=== PATIENT | male | born 1965 | race Caucasian/White ===

== ENCOUNTER 2024-09-15 22:06 | Emergency (ER) | payer OTHER ==
--- NOTE | 2024-09-15 22:10 | ERPHSYRPT ---
- History of Present Illness Time Seen by Provider: 09/15/24 22:10 Source: patient, family Exam Limitations: no limitations Physician History: This is an overweight 58-year-old white male patient of Dr. Guerrero who arrives by private vehicle with complaints of fever, mild dizziness, mild headache and body aches and pains as well as fatigue. He denies chest pain. He denies cough. He denies shortness of breath. He has no abdominal pain. He denies nausea vomiting and diarrhea. He has no neck pain. He has no visual changes. He denies photophobia. He denies earache and he denies sore throat. Patient states he did have a fever yesterday as high as 102 F. Patient arrives to the emergency department afebrile. He states that his fever must of broke from the time he was home to the time he arrived in our emergency department because he is feeling much better. Patient has a history of hypertension, prostate issues, hyperlipidemia and gastroesophageal reflux disease. Patient does state that he thinks he is not taking enough oral intake and would like an intravenous line placed and crystalloid fluid infused Timing/Duration: yesterday Fever Severity: gone Fever Therapy BAKER PAINT: Ibuprofen, Acetaminophen Associated Symptoms: headache, muscle aches, weakness (Mild weakness and fatigue), No abdominal pain, No chest pain, No confusion, No cough, No nausea/ vomiting, No stiff neck Allergies/Adverse Reactions: No Known Drug Allergies Allergy (Verified 09/15/24 22:49) Home Medications: Losartan Potassium 100 mg PO DAILY 01/09/14 [History] Aspirin EC 81 mg [Ecotrin 81 mg] 1 tab PO DAILY 09/15/24 [History] Atorvastatin Calcium 10 mg PO HS 09/15/24 [History] Cholecalciferol (Vitamin D3) [Vitamin D3] 5,000 units PO DAILY 09/15/24 [History] Escitalopram Oxalate 10 mg PO DAILY 09/15/24 [History] Gabapentin 200 mg PO TID 09/15/24 [History] Metoprolol Succinate 100 mg [Toprol Xl 100 MG] 1 tab PO DAILY 09/15/24 [History] Omeprazole 40 mg PO DAILY 09/15/24 [History] Tamsulosin HCl 0.4 mg [Flomax 0.4 MG] 1 tab PO HS 09/15/24 [History] Hx Tetanus, Diphtheria Vaccination/Date Given: Yes (2011) Hx Influenza Vaccination/Date Given: No Hx Pneumococcal Vaccination/Date Given: No Travel Risk - International Travel Have you traveled outside of the country in past 3 weeks: No - Emerging Infectious Disease Are you exhibiting symptoms associated with any current EIDs: Yes Symptoms: Headaches/Body Aches/ - Review of Systems Constitutional: Fatigue, Weakness Eyes: No Symptoms Ears, Nose, & Throat: No Symptoms Respiratory: No Symptoms Cardiac: No Symptoms Abdominal/Gastrointestinal: No Symptoms Genitourinary Symptoms: No Symptoms Musculoskeletal: Arthralgias, Myalgias Skin: No Symptoms Neurological: No Symptoms Psychological: No Symptoms Endocrine: No Symptoms Hematologic/Lymphatic: No Symptoms Immunological/Allergic: No Symptoms All Other Systems: Reviewed and Negative - Past Medical History Pertinent Past Medical History: Yes Cardiac History: Hypertension Other Medical History: NEUROPATHY - Past Surgical History Past Surgical History: Yes Other Surgical History: LOWER BACK. LT KNEE. REMOVAL OF CYST MID BACK - Social History Smoking Status: Current every day smoker Exposure to second hand smoke: Yes Drug Use: none Patient Lives Alone: No - Nursing Vital Signs Nursing Vital Signs: Initial Vital Signs Temperature 98.7 F 09/15/24 22:37 Pulse Rate 78 09/15/24 22:37 Respiratory Rate 22 09/15/24 22:37 Blood Pressure 145/64 09/15/24 22:37 O2 Sat by Pulse Oximetry 96 09/15/24 22:37 Pain Scale Pain Intensity 3 - Physical Exam General Appearance: no apparent distress, alert, anxiety, obese Eye Exam: PERRL/EOMI, eyes nml inspection ENT Exam: normal ENT inspection, no apparent trauma, hearing grossly normal, TMs normal, pharynx normal Neck Exam: normal inspection, non-tender, supple, full range of motion Respiratory Exam: normal breath sounds, lungs clear, no respiratory distress, no accessory muscle use, No chest non-tender, No respiratory distress Cardiovascular/Chest Exam: normal heart sounds, regular rate/rhythm Gastrointestinal/Abdominal Exam: soft, non tender, no distention, no mass, no guarding, no ecchymosis, no organomegaly, no pulsatile mass, normal bowel sounds Rectal Exam: not done Extremity Exam: non-tender, normal range of motion, normal inspection Neurologic Exam: alert, oriented x 3, cooperative, 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, normal mood/affect, nml cerebellar function, nml station & gait, sensation nml Skin Exam: normal color, warm, dry Lymphatic: No adenopathy SpO2 Interpretation: normal O2 Delivery: Room Air - Course Nursing assessment & vital signs reviewed: Yes Ordered Tests: Active Orders 24 hr Category Date Time Status CBC W DIFF Stat Lab 09/15/24 23:44 Completed CMP Stat Lab 09/15/24 23:44 Completed CULTURE,URINE Stat Lab 09/16/24 00:19 Received Lactic Acid Stat Lab 09/15/24 23:44 Completed MONO SCREEN Stat Lab 09/15/24 Completed UA W/RFX UR CULTURE Stat Lab 09/16/24 00:19 Completed Medication Summary Discontinued Medications Generic Name Dose Route Start Last Admin Trade Name Freq PRN Reason Stop Dose Admin Sodium Chloride 1,000 mls @ 999 mls/hr 09/15/24 23:44 09/16/24 00:09 Sodium Chloride 0.9% 1000 Ml IV 09/16/24 00:44 999 mls/hr .Q1H1M STA Administration Sodium Chloride Confirm 09/16/24 00:07 Sodium Chloride 0.9% 1000 Ml Administered 09/16/24 00:08 Dose 1,000 mls @ ud .ROUTE .STK-MED ONE Lab/Rad Data: Laboratory Result Diagrams 09/16/24 00:01 09/16/24 00:01 Laboratory Results 09/16/24 09/16/24 09/16/24 Range/Units 00:19 00:05 00:01 WBC (4.23-9.07) x10^3/uL RBC (4.63-6.08) x10^6/uL Hgb (13.7-17.5) g/dL Hct (40.1-51.0) % MCV (79.0-92.2) fL MCH (25.7-32.2) pg MCHC (32.3-36.5) g/dL RDW (11.6-14.4) % Plt Count (163-337) x10^3/uL MPV (9.4-12.4) fL Gran % (34.0-67.9) % Immature Gran % (Auto) (0.001-0.429) % Nucleat RBC Rel Count (0.00-0.2) % Eos # (Auto) (0.04-0.54) x10^3/uL Immature Gran # (Auto) (0.001-0.031) x10^3u/L Absolute Lymphs (auto) (1.32-3.57) x10^3/uL Absolute Monos (auto) (0.30-0.82) x10^3/uL Absolute Nucleated RBC (0.00-0.012) x10^3u/L Lymphocytes % (21.8-53.1) % Monocytes % (5.3-12.2) % Eosinophils % (0.8-7.0) % Basophils % (0.2-1.2) % Absolute Granulocytes (1.78-5.38) x10^3/uL Basophils # (0.01-0.08) x10^3/uL Sodium (135-145) mmol/L Potassium (3.5-5.1) mmol/L Chloride (98-107) mmol/L Carbon Dioxide (22-30) mmol/L Anion Gap (5-15) MEQ/L BUN (9-20) mg/dL Creatinine (0.66-1.25) mg/dL Estimated GFR ML/MIN Glucose (74-106) mg/dL Lactic Acid 0.7 (0.4-2.0) Calcium (8.4-10.2) mg/dL Total Bilirubin (0.2-1.3) mg/dL AST (17-59) U/L ALT (0-50) U/L Alkaline Phosphatase (38-126) U/L Serum Total Protein (6.3-8.2) g/dL Albumin (3.5-5.0) g/dL Urine Color Yellow (Yellow) Urine Appearance Clear (Clear) Urine pH 6.0 (4.6-8.0) Ur Specific [place]ott 1.015 (1.005-1.030) Urine Protein Negative (Negative) Urine Glucose (UA) Negative (Negative) mg/dL Urine Ketones Negative (Negative) Urine Blood Trace (Negative) Urine Nitrite Negative (Negative) Urine Bilirubin Negative (Negative) Urine Urobilinogen 0.2 (0.2) mg/dL Ur Leukocyte Esterase Trace A (Negative) U Hyaline Cast (Auto) NONE SEEN (0-2) /LPF Urine Microscopic RBC 0-2 (0-5) /HPF Urine Microscopic WBC 11-20 A (0-5) /HPF Ur Epithelial Cells None Seen (None Seen) /HPF Urine Bacteria None Seen (None Seen) /HPF Urine Culture Reflexed YES (NO) Monoscreen NEGATIVE (NEGATIVE) Influenza Type A Ag (NEGATIVE) Influenza Type B Ag (NEGATIVE) RSV (PCR) (NEGATIVE) SARS-CoV-2 (PCR) (NEGATIVE) Slides for Path Review 09/16/24 09/16/24 09/15/24 Range/Units 00:01 00:01 22:50 WBC 17.7 H (4.23-9.07) x10^3/uL RBC 3.79 L (4.63-6.08) x10^6/uL Hgb 11.3 L (13.7-17.5) g/dL Hct 33.8 L (40.1-51.0) % MCV 89.2 (79.0-92.2) fL MCH 29.8 (25.7-32.2) pg MCHC 33.4 (32.3-36.5) g/dL RDW 13.6 (11.6-14.4) % Plt Count 239 (163-337) x10^3/uL MPV 10.5 (9.4-12.4) fL Gran % 70.5 H (34.0-67.9) % Immature Gran % (Auto) 0.5 H (0.001-0.429) % Nucleat RBC Rel Count 0.0 (0.00-0.2) % Eos # (Auto) 0.18 (0.04-0.54) x10^3/uL Immature Gran # (Auto) 0.08 H (0.001-0.031) x10^3u/L Absolute Lymphs (auto) 3.25 (1.32-3.57) x10^3/uL Absolute Monos (auto) 1.67 H (0.30-0.82) x10^3/uL Absolute Nucleated RBC 0.00 (0.00-0.012) x10^3u/L Lymphocytes % 18.3 L (21.8-53.1) % Monocytes % 9.4 (5.3-12.2) % Eosinophils % 1.0 (0.8-7.0) % Basophils % 0.3 (0.2-1.2) % Absolute Granulocytes 12.48 H (1.78-5.38) x10^3/uL Basophils # 0.06 (0.01-0.08) x10^3/uL Sodium 134 L (135-145) mmol/L Potassium 3.6 (3.5-5.1) mmol/L Chloride 103 (98-107) mmol/L Carbon Dioxide 23 (22-30) mmol/L Anion Gap 12.0 (5-15) MEQ/L BUN 21 H (9-20) mg/dL Creatinine 1.01 (0.66-1.25) mg/dL Estimated GFR 85.7 ML/MIN Glucose 111 H (74-106) mg/dL Lactic Acid (0.4-2.0) Calcium 8.8 (8.4-10.2) mg/dL Total Bilirubin 0.50 (0.2-1.3) mg/dL AST 33 (17-59) U/L ALT 27 (0-50) U/L Alkaline Phosphatase 58 (38-126) U/L Serum Total Protein 7.1 (6.3-8.2) g/dL Albumin 3.9 (3.5-5.0) g/dL Urine Color (Yellow) Urine Appearance (Clear) Urine pH (4.6-8.0) Ur Specific [place]ott (1.005-1.030) Urine Protein (Negative) Urine Glucose (UA) (Negative) mg/dL Urine Ketones (Negative) Urine Blood (Negative) Urine Nitrite (Negative) Urine Bilirubin (Negative) Urine Urobilinogen (0.2) mg/dL Ur Leukocyte Esterase (Negative) U Hyaline Cast (Auto) (0-2) /LPF Urine Microscopic RBC (0-5) /HPF Urine Microscopic WBC (0-5) /HPF Ur Epithelial Cells (None Seen) /HPF Urine Bacteria (None Seen) /HPF Urine Culture Reflexed (NO) Monoscreen (NEGATIVE) Influenza Type A Ag NEGATIVE (NEGATIVE) Influenza Type B Ag NEGATIVE (NEGATIVE) RSV (PCR) NEGATIVE (NEGATIVE) SARS-CoV-2 (PCR) NEGATIVE (NEGATIVE) Slides for Path Review YES - Progress Progress: improved Progress Note: 09/16/24 00:10 My medical decision making and the assignment of moderate complexity of this patient's medical issue today is based on review of the patient's past medical history, review of the patient's medication list, review of the patient's drug allergy list, history present illness and physical findings on examination. The workup in this patient includes placement of a intravenous line, viral swabs, monotest, infusion of normal saline solution, CBC and CMP and urinalysis. Differential diagnosis includes but is not limited to viral illness, mononucleosis, dehydration, electrolyte abnormalities, urinary tract infection, dehydration 09/16/24 00:53 I interpreted the patient's laboratory data results. Based on the laboratory data results, the patient has a urinary tract infection. The patient also has a significant leukocytosis 09/16/24 00:53 Counseled pt/family regarding: lab results, diagnosis, need for follow-up, rad results Medical Desision Making - Risk of complications The pt has a mod risk of morbidity or mortality based on: Need for prescription drug management - Departure Departure Disposition: Home Clinical Impression: UTI (urinary tract infection), Fever, Leukocytosis Condition: Stable Critical Care Time: No Referrals: EVON GUERRERO DO [Primary Care Provider] - Follow up/PCP as directed Additional Instructions: Drink plenty of fluids. Take your antibiotics and other medications as prescribed. Call your primary care provider later today, 09/16/2024 to make arrangements for follow-up appointment for further evaluation management. Prescriptions: Cefdinir 300 mg PO BID #[id number] cap
[2024-09-15 22:39] VITALS: TEMP 98.7
[2024-09-15 23:33] LABS: INFLUENZA A NEGATIVE (NEGATIVE); INFLUENZA B NEGATIVE (NEGATIVE); RESPIRATORY SYNCTIAL VIRUS NEGATIVE (NEGATIVE); SARS-CoV-2 Xpert Express NEGATIVE (NEGATIVE)
[2024-09-16 00:06] LABS: Absolute Neutrophil Ct (ANC) 12.48 x10^3/uL (1.78-5.38); BASOPHIL % 0.3 % (0.2-1.2); Basophil (Absolute #) 0.06 x10^3/uL (0.01-0.08); Eosinophil (Absolute #) 0.18 x10^3/uL (0.04-0.54); Hematocrit 33.8 % (40.1-51.0); Hemoglobin 11.3 g/dL (13.7-17.5); IMMATURE GRAN # 0.08 x10^3u/L (0.001-0.031); IMMATURE GRAN % 0.5 % (0.001-0.429); Lymphocyte (Absolute #) 3.25 x10^3/uL (1.32-3.57); Lymphocytes % 18.3 % (21.8-53.1); Mean Cell Volume 89.2 fL (79.0-92.2); Mean Corpuscular Hemoglobin 29.8 pg (25.7-32.2); Mean Corpuscular Hgb Concent. 33.4 g/dL (32.3-36.5); Mean Platelet Volume 10.5 fL (9.4-12.4); Monocyte (Absolute #) 1.67 x10^3/uL (0.30-0.82); Monocytes % 9.4 % (5.3-12.2); Neutrophil % 70.5 % (34.0-67.9); Platelet Count 239 x10^3/uL (163-337); Red Blood Count 3.79 x10^6/uL (4.63-6.08); Red Cell Distribution Width 13.6 % (11.6-14.4); White Blood Count 17.7 x10^3/uL (4.23-9.07)
[2024-09-16] MEDS ORDERED: Sodium Chloride 0.9% 1000 ML 1,000 ML ONE (00:07)
[2024-09-16] MEDS: Sodium Chloride 0.9% 1000 ML 1,000 ML IV STA (00:09)
[2024-09-16 00:19] LABS: ALBUMIN 3.9 g/dL (3.5-5.0); BILIRUBIN,TOTAL 0.5 mg/dL (0.2-1.3); Calcium 8.8 mg/dL (8.4-10.2); Creatinine 1 1.01 mg/dL (0.66-1.25); EST GLOMERULAR FILTRATION RATE 85.7 ML/MIN; Potassium 3.6 mmol/L (3.5-5.1); Total Protein 7.1 g/dL (6.3-8.2)
[2024-09-16 00:33] LABS: Appearance Clear (Clear); Bacteria None Seen /HPF (None Seen); Bilirubin Negative (Negative); Blood Trace (Negative); Epithelial Cells None Seen /HPF (None Seen); Glucose, Urine Negative (Negative); Hyaline Casts NONE SEEN /LPF (0-2); Ketones Negative (Negative); Leukocyte Esterase Trace (Negative); Nitrite Negative (Negative); Protein,Urine Dip Negative (Negative); RBC 0-2 /HPF (0-5); Specific Gravity 1.015 (1.005-1.030); Urobilinogen 0.2 mg/dL (0.2)
[2024-09-16 00:40] LABS: Slide Review 1 YES
[2024-09-16 01:03] VITALS: BP 121/61; PULSE 83; RESP 22; O2SAT 93
[2024-09-16] MEDS ORDERED: ROCEPHIN 1 GM / 100 ML NaCl 1 GM/100 ML IVPB IV ONE (01:04)
[2024-09-16] MEDS: ROCEPHIN 1 GM / 100 ML NaCl 1 GM/100 ML IVPB IV ONE (01:05)
== END 2024-09-16 01:49 | disposition home or self-care (01) ==
LOC: ED 22:06
DX: N39.0 Urinary tract infection, site not specified (principal); R50.9 Fever, unspecified; D72.829 Elevated white blood cell count, unspecified; R42 Dizziness and giddiness; R51.9 Headache, unspecified; M79.10 Myalgia, unspecified site; R53.83 Other fatigue; I10 Essential (primary) hypertension; E78.5 Hyperlipidemia, unspecified; Z79.899 Other long term (current) drug therapy; Z72.0 Tobacco use
CPT/HCPCS: 0241U; 36415; 80053; 81001; 83605; 85025; 86308; 87086; 99283; J0696